=== PATIENT | male | born 1980 | race Caucasian/White ===

== ENCOUNTER 2020-09-29 01:12 | Emergency (ER) | payer MEDICAID ==
[~2020-09-29] VITALS: Ht 172.7 cm; Wt 86.2 kg
[2020-09-29 01:18] VITALS: BP 135/98
[2020-09-29] MEDS ORDERED: KETOROLAC 60 MG/2 ML VIAL IM ONE (01:25)
[2020-09-29] MEDS ORDERED: CEPH-588 PO (02:49)
[2020-09-29 02:51] VITALS: BP 135/98
== END 2020-09-29 02:51 | disposition home or self-care (01) ==
LOC: MED 01:12
DX: S61.217A Laceration without foreign body of left little finger without damage to nail, initial encounter (principal); I10 Essential (primary) hypertension; W26.8XXA Contact with other sharp object(s), not elsewhere classified, initial encounter; Y93.89 Activity, other specified; Y92.89 Other specified places as the place of occurrence of the external cause; Y99.8 Other external cause status
CPT/HCPCS: 73140; 90471; 90715; 96372; 99284; J1885